=== PATIENT | male | born 1945 | race Caucasian/White ===

== ENCOUNTER 2024-08-27 12:35 | Inpatient (IN) | payer BC, OTHER ==
[~2024-08-27] VITALS: Ht 177.8 cm; Wt 93.3 kg
[2024-08-27] VITALS (33 sets, daily range): BP systolic 129–179; BP diastolic 72–115; PULSE 62–85; RESP 6–22; TEMP 36.3624–37.00296; O2SAT 93–97
[2024-08-27] MEDS: ASPIRIN 325MG TABLET PO ONE (13:02)
[2024-08-27 13:03] LABS: BASOPHILS % 0.5 % (0.0-2.0); EOSINOPHILS % 0.5 % (0.0-5.0); HEMATOCRIT. 48.8 % (42.0-52.0); HEMOGLOBIN. 16.7 g/dL (14.0-18.0); LYMPHOCYTES % 16.3 % (20.0-50.0); MEAN CORPUSCULAR HEMOGLOBIN 30.2 pg (28.0-32.0); MEAN CORPUSCULAR HGB CONC 34.3 g/dL (31.0-37.0); MEAN PLATELET VOLUME 8.4 fl (7.4-10.4); NEUTROPHILS % 75.7 % (40.0-76.0); PLATELET 216 x1000/uL (130-400); RED BLOOD CELL COUNT 5.54 mill/uL (4.7-6.1); RED CELL DISTRIBUTION WIDTH 13.6 % (11.6-14.6); WHITE BLOOD COUNT 6.4 x1000/uL (4.5-11.0)
[2024-08-27] MEDS: MORPHINE SULFATE 4 MG/ML INJ (FOR IV/IM USE) IV ONE (13:10)
[2024-08-27] MEDS: HEPARIN 5000 UNITS/ML VIAL IV ONE (13:10)
[2024-08-27 13:11] LABS: CHLORIDE 100 mEq/L (98-107); POTASSIUM 3.9 mEq/L (3.5-5.1); SODIUM 135 mEq/L (136-145)
[2024-08-27] MEDS ORDERED: HEPARIN 1000 UNITS/ML 10ML ONE (13:11)
[2024-08-27] MEDS ORDERED: LIDOCAINE HCL 1% 20ML VIAL ONE (13:11)
[2024-08-27] MEDS ORDERED: IODIXANOL 320MG/ML 100 ML BOTTLE IV ONE ×2 (13:11→13:57)
[2024-08-27 13:12] LABS: CARBON DIOXIDE 27 mEq/L (21-32)
[2024-08-27 13:13] LABS: CALCIUM 9.5 mg/dL (8.7-10.4)
[2024-08-27 13:17] LABS: CREATININE 1.1 mg/dL (0.6-1.3); GLUCOSE 256 mg/dL (70-105)
[2024-08-27 13:18] LABS: UREA NITROGEN BLOOD 11 mg/dL (9-23)
[2024-08-27] MEDS ORDERED: FENTANYL CITRATE/PF 50MCG/ML 2ML VIAL ONE (13:29)
[2024-08-27] MEDS ORDERED: MIDAZOLAM HCL 2 MG/2 ML VIAL ONE (13:29)
[2024-08-27 13:45] LABS: TROPONIN I HIGH SENSITIVITY 105 ng/L (3.0-53)
[2024-08-27] MEDS ORDERED: IODIXANOL 320 MG/ML 150ML BOTTLE IV ONE (14:11)
[2024-08-27] MEDS ORDERED: CLOPIDOGREL 75MG TABLET ONE (14:19)
[2024-08-27] MEDS ORDERED: DEXTROSE 50% WATER 50ML SYRINGE IV PRN (14:30)
[2024-08-27] MEDS ORDERED: ONDANSETRON HCL 4MG/2ML INJ IV PRN ×2 (14:30→14:45)
[2024-08-27] MEDS ORDERED: IPRATROPIUM/ALBUTEROL 0.5-3(2.5)MG/3ML NEB HHN PRN (14:30)
[2024-08-27] MEDS ORDERED: ACETAMINOPHEN 325MG TABLET PO PRN ×2 (14:30→14:45)
[2024-08-27] MEDS ORDERED: ATROPINE SULFATE 1MG/10ML SYR IV PRN (14:45)
[2024-08-27 15:49] LABS: CLARITY URINE CLEAR (CLEAR); COLOR URINE YELLOW (YELLOW); GLUCOSE URINE 2+ (NEGATIVE); KETONES URINE TRACE (NEGATIVE); LEUKOCYTE ESTERASE URINE NEGATIVE (NEGATIVE); NITRITE URINE NEGATIVE (NEGATIVE); OCCULT BLOOD URINE NEGATIVE (NEGATIVE); PROTEIN URINE TRACE (NEGATIVE); SPECIFIC GRAVITY URINE 1.061 (1.005-1.030); UROBILINOGEN URINE 0.2 E.U./dL (0.2-1.0)
[2024-08-27] MEDS: ASPIRIN 81MG TABLET PO NR (15:54)
[2024-08-27] MEDS: CARVEDILOL 3.125 MG TABLET PO NR (15:55)
[2024-08-27 16:03] LABS: BACTERIA URINE NONE SEEN; RBC URINE 0-2 /hpf (0-2); SQUAMOUS EPITHELIAL CELL URINE RARE /lpf (RARE/1+)
[2024-08-27 16:04] LABS: WBC URINE 0-2 /hpf (0-2)
[2024-08-27 16:06] LABS: PHOSPHORUS 3.5 mg/dL (2.5-4.9)
[2024-08-27 16:06] LABS: SODIUM URINE RANDOM 169 mEq/L
[2024-08-27 16:13] LABS: *AMPHETAMINES SCREEN URINE NEGATIVE (NEGATIVE); *BARBITURATES SCREEN URINE NEGATIVE (NEGATIVE); *BENZODIAZEPINES SCREEN URINE PRESUMPTIVE POSITIVE (NEGATIVE); *COCAINE SCREEN URINE NEGATIVE (NEGATIVE); CANNABINOID URINE SCREEN NEGATIVE (NEGATIVE); ECSTASY MDMA SCREEN URINE NEGATIVE (NEGATIVE); METHADONE URINE SCREEN NEGATIVE (NEGATIVE); OPIATES URINE SCREEN PRESUMPTIVE POSITIVE (NEGATIVE); PHENCYCLIDINE URINE SCREEN NEGATIVE (NEGATIVE)
[2024-08-27] MEDS ORDERED: HYDRALAZINE 20MG/ML VIAL IV PRN (16:30)
[2024-08-27] MEDS: SODIUM CHLORIDE 0.45% 1,000 ML IV SCH (16:33)
[2024-08-27] MEDS: BLOOD SUGAR DIAGNOSTIC STRIP TEST SCH (17:17)
[2024-08-27 17:21] LABS: OSMOLALITY URINE 516 mOsm/kg (500-850)
[2024-08-27] MEDS: INSULIN LISPRO 100 UNITS/ML SUBCUT SCH (17:33)
[2024-08-27] MEDS ORDERED: ATORVASTATIN CALCIUM 40MG TABLET PO SCH (21:00)
[2024-08-27] MEDS: ATORVASTATIN CALCIUM 40MG TABLET PO SCH (22:08)
[2024-08-27 22:56] LABS: TROPONIN I HIGH SENSITIVITY 3014 ng/L (3.0-53)
[2024-08-28] VITALS (32 sets, daily range): BP systolic 113–178; BP diastolic 66–137; PULSE 65–89; RESP 4–27; TEMP 36.50292–38.72532; O2SAT 93–99
[2024-08-28 07:18] LABS: BASOPHILS % 0.3 % (0.0-2.0); EOSINOPHILS % 1.3 % (0.0-5.0); HEMATOCRIT. 49.1 % (42.0-52.0); HEMOGLOBIN. 16.5 g/dL (14.0-18.0); LYMPHOCYTES % 13.4 % (20.0-50.0); MEAN CORPUSCULAR HEMOGLOBIN 29.7 pg (28.0-32.0); MEAN CORPUSCULAR HGB CONC 33.7 g/dL (31.0-37.0); MEAN CORPUSCULAR VOLUME 88.1 fL (80.0-94.0); MEAN PLATELET VOLUME 8.6 fl (7.4-10.4); MONOCYTES % 8.7 % (2.0-8.0); NEUTROPHILS % 76.3 % (40.0-76.0); PLATELET 198 x1000/uL (130-400); RED BLOOD CELL COUNT 5.57 mill/uL (4.7-6.1); RED CELL DISTRIBUTION WIDTH 13.9 % (11.6-14.6); WHITE BLOOD COUNT 7.3 x1000/uL (4.5-11.0)
[2024-08-28 07:22] LABS: CREATINE KINASE MB FRACTION 30.9 ng/mL (0.5-3.6)
[2024-08-28 08:14] LABS: CHLORIDE 102 mEq/L (98-107); POTASSIUM 4.5 mEq/L (3.5-5.1); SODIUM 134 mEq/L (136-145)
[2024-08-28 08:15] LABS: CALCIUM 9.1 mg/dL (8.7-10.4); CARBON DIOXIDE 26 mEq/L (21-32)
[2024-08-28 08:20] LABS: CREATININE 0.9 mg/dL (0.6-1.3); GLUCOSE 186 mg/dL (70-105); TRIGLYCERIDE 132 mg/dL (0-150); UREA NITROGEN BLOOD 7 mg/dL (9-23)
[2024-08-28 08:21] LABS: LDL CHOLESTEROL 148 mg/dL (5-100)
[2024-08-28] MEDS: METFORMIN HCL 500MG TABLET PO SCH (08:21)
[2024-08-28] MEDS: CARVEDILOL 3.125 MG TABLET PO SCH (08:21)
[2024-08-28] MEDS: CLOPIDOGREL 75MG TABLET PO SCH (08:21)
[2024-08-28] MEDS: AMLODIPINE 5MG TABLET PO SCH (08:21)
[2024-08-28 08:22] LABS: ALANINE AMINOTRANSFERASE 28 IU/L (10-49); ALBUMIN 4.1 g/dL (3.2-4.8); ASPARTATE AMINOTRANSFERASE 41 IU/L (<34); BILIRUBIN DIRECT 0.4 mg/dL (<=3.0); BILIRUBIN TOTAL 1.4 mg/dL (0.1-1.0); CHOLESTEROL 207 mg/dL (<200); HDL CHOLESTEROL 48 mg/dL (>55); PROTEIN TOTAL 6.1 g/dL (6.0-8.3)
[2024-08-28] MEDS: ASPIRIN 81MG TABLET PO SCH (08:22)
[2024-08-28 08:24] LABS: T4 FREE 0.93 ng/dL (0.89-1.76); THYROID STIMULATING HORMONE 1.06 uIU/mL (0.55-4.78)
[2024-08-29] VITALS (7 sets, daily range): BP systolic 110–135; BP diastolic 58–86; PULSE 66–99; RESP 18–20; TEMP 36.00288–37.28076; O2SAT 94–100
[2024-08-29 06:24] LABS: CHLORIDE 102 mEq/L (98-107); POTASSIUM 3.6 mEq/L (3.5-5.1); SODIUM 134 mEq/L (136-145)
[2024-08-29 06:25] LABS: CALCIUM 9.1 mg/dL (8.7-10.4); CARBON DIOXIDE 24 mEq/L (21-32)
[2024-08-29 06:30] LABS: GLUCOSE 167 mg/dL (70-105); UREA NITROGEN BLOOD 9 mg/dL (9-23)
[2024-08-29 06:45] LABS: HEMATOCRIT 48.1 % (42.0-52.0); HEMOGLOBIN 16.7 g/dL (14.0-18.0); MEAN CORPUSCULAR HEMOGLOBIN 30.4 pg (28.0-32.0); MEAN CORPUSCULAR HGB CONC 34.8 g/dL (31.0-37.0); MEAN CORPUSCULAR VOLUME 87.6 fL (80.0-94.0); PLATELET 218 x1000/uL (130-400); RED BLOOD CELL COUNT 5.49 mill/uL (4.7-6.1); RED CELL DISTRIBUTION WIDTH 13.7 % (11.6-14.6); WHITE BLOOD COUNT 7.7 x1000/uL (4.5-11.0)
[2024-08-29] MEDS ORDERED: METF-414 PO (10:37)
[2024-08-29] MEDS ORDERED: CLOP-31 PO (10:37)
[2024-08-29] MEDS ORDERED: LIP40 PO (10:37)
[2024-08-29] MEDS ORDERED: COR3 PO (10:37)
[2024-08-29] MEDS ORDERED: ASPI-1160 PO (10:37)
[2024-08-29] MEDS ORDERED: AMLO5TAB88 PO (10:37)
[2024-08-29] MEDS ORDERED: AMLO5TAB4 MT (14:26)
[2024-08-29] MEDS ORDERED: METF500S9 PO (14:29)
[2024-08-29] MEDS ORDERED: ATOR40TA70 MT (14:31)
[2024-08-29] MEDS ORDERED: ASPI-1079 PO (14:33)
== END 2024-08-29 15:52 | disposition home or self-care (01) | DRG 243 ==
LOC: ER 12:50 → CVICU 13:35 → EDBEDREQ 13:42 → 8WST 08-28 16:45
PROVIDERS: ADMIT Internal Medicine; ATTEND Internal Medicine
PROC: 027136Z Dilation of Coronary Artery, Two Arteries with Three Drug-eluting Intraluminal Devices, Percutaneous Approach (ICD-10-PCS; principal; 2024-08-27)
PROC: 4A023N7 Measurement of Cardiac Sampling and Pressure, Left Heart, Percutaneous Approach (ICD-10-PCS; 2024-08-27)
PROC: B215YZZ Fluoroscopy of Left Heart using Other Contrast (ICD-10-PCS; 2024-08-27)
PROC: B211YZZ Fluoroscopy of Multiple Coronary Arteries using Other Contrast (ICD-10-PCS; 2024-08-27)
PROC: 0JH606Z Insertion of Pacemaker, Dual Chamber into Chest Subcutaneous Tissue and Fascia, Open Approach (ICD-10-PCS; 2024-08-29)
PROC: 02H63JZ Insertion of Pacemaker Lead into Right Atrium, Percutaneous Approach (ICD-10-PCS; 2024-08-29)
PROC: 02PA3MZ Removal of Cardiac Lead from Heart, Percutaneous Approach (ICD-10-PCS; 2024-08-29)
PROC: 02HK3JZ Insertion of Pacemaker Lead into Right Ventricle, Percutaneous Approach (ICD-10-PCS; 2024-08-29)
DX: I21.19 ST elevation (STEMI) myocardial infarction involving other coronary artery of inferior wall (principal); E87.1 Hypo-osmolality and hyponatremia; I48.21 Permanent atrial fibrillation; E78.5 Hyperlipidemia, unspecified; E11.9 Type 2 diabetes mellitus without complications; I10 Essential (primary) hypertension; I25.10 Atherosclerotic heart disease of native coronary artery without angina pectoris; F17.210 Nicotine dependence, cigarettes, uncomplicated; Z79.4 Long term (current) use of insulin; Z95.5 Presence of coronary angioplasty implant and graft
CPT/HCPCS: 36415; 80048; 80061; 80076; 80305; 81003; 82550; 82553; 82962; 83036; 83735; 83930; 83935; 84100; 84300; 84439; 84443; 84484; 85025; 85027; 85347; 86850; 86900; 92928; 93005; 93306; 93458; 99285; C1725; C1769; C1874; C1887; C1893; J1644; J1815; J2250; J2270; J3010; J3490; Q9967